=== PATIENT | female | born 1975 | race African-American/Black ===

== ENCOUNTER 2017-01-02 11:55 | Emergency (ER) | payer OTHER ==
[2014-09-25 16:21] VITALS: BP 101/59
[2017-01-02] MEDS ORDERED: traMADol HCL 50 MG TABLET ONE (12:14)
--- NOTE | 2017-01-02 17:15 | Diagnostic Imaging Report ---
[facility] [address] [facility].[address] [address] Report Submission Date: Jan 02, 2017 12:40:54 PM CDT Patient Study Name: PAM MCCARTHY Date: Jan 02, 2017 12:18:05 PM CDT Modality Type: CR Gender: F Description: SPINE : 79 Institution: [facility] Physician: CHI DUTTON - RAJ Lumbar spine -three views CLINICAL HISTORY: Right-sided low back pain for 1 day. FINDINGS: Examination lumbar spine in AP, lateral and lateral coned-down views demonstrates mild levoscoliosis with the apex at L4-5. This may be related to muscle spasm or patient positioning. Pedicles are intact and the paravertebral soft tissues are within normal limits. There is no evident fracture and no lytic or blastic lesion. IMPRESSION: Mild levoscoliosis. No fracture. Electronically signed on Jan 02, 2017 12:40:54 PM CDT by: Mike YIN
--- NOTE | 2017-01-10 15:09 | ED Physician Documentation ---
Low Back Pain - HISTORIAN Historian: patient, friend - [facility] Chief Complaint: Low Back Pain/ Injury Additional Information: LOW BACKK PAIN SPASM APARENTLY AFTER LIFTING OR MAYBE JUST TWISTED WRONG Onset: other (ONSET YESTERDAY WORSE TODAY - UNABLE TO GO TO WORK. PT SITS BENT OVER IN W/CHAIR ) Duration: continues in ED, worse Recent Injury: No (UNCERTAIN JUST HOW BUT ROGRESSIVELY WORSE) Context: lifting, turning, bending Where: work Other Injuries: back Severity: moderate, severe Quality: burning, sharp Associated Symptoms: denies: fever, chills, sweating, constipation Worsened By:: movement to RT flexion, movement to LT flexion - ROS CONST: no problems. denies: recent illness CVS/RESP: none MS/SKIN/LYMPH: none Neuro/Psych: none GI/: denies: abdominal pain - PAST HX Past History: other (OCC PREV BACK PAIN BUT NOT THIS BAD) Surgeries/Procedures: BTL Allergies/Adverse Reactions: Allergies Allergy/AdvReac Type Severity Reaction Status Date / Time diclofenac [Diclofenac] Allergy Verified 09/25/14 16:22 ibuprofen Allergy Verified 09/25/14 16:22 naproxen Allergy Verified 09/25/14 16:22 NSAIDS (Non-Steroidal Allergy Verified 09/25/14 16:22 Anti-Inflamma Home Medications: Ambulatory Orders Medication Instructions Recorded Baclofen 10 mg PO TID PRN #21 tablet 09/25/14 - SOCIAL HX Smoking History: non-smoker Alcohol Use: none Drug Use: none - FAMILY HX Family History: no significant history - VITAL SIGNS Vital Signs: Vital Signs Temp Pulse Resp BP Pulse Ox 101/59 09/25/14 18:03 - REVIEWED ASSESSMENTS Nursing Assessment Reviewed: Yes Vitals Reviewed: Yes ED Results Lab/Radiology - Orders Orders: ED Orders Category Date Time Status L SPINE 2 OR 3 VIEWS [RAD] Routine Exams 01/02/17 Completed traMADol HCL [Ultram] Med 01/02/17 12:14 Discontinued 100 mg .ROUTE .STK-MED ONE Low Back Pain/Injury - Physical Exam General Appearance: moderate distress EENT: eye inspection normal Neck: non-tender, painless ROM Resp/CVS: chest non-tender, breath sounds nml, heart sounds nml, no resp. distress, lungs clear, reg. rate & rhythm Abdomen: non-tender Back: CVA tenderness, muscle spasm. No: vertebral point-tendernes Neuro/Psych: oriented x3, sensation nml, mood/affect nml Skin: warm/dry, normal color. No: cyanosis, diaphoresis, jaundice Extremities: non-tender, normal range of motion, no evidence of injury, no edema Discharge Clincal Impression: LUMBAR AND THORACIC BACK PAIN Referrals: Primary Doctor,No [Primary Care Provider] - 2 Days Comments: HOME MEDS HOT MOIST PACKS LIE ON FLAT FIRM SURFACEF/U W/PCP OR RTED Disposition: 01 HOME, SELF-CARE Decision to Admit: NO Decision Time: 12:51
== END 2017-01-02 13:00 | disposition home or self-care (01) ==
LOC: ED 11:55
DX: M54.6 Pain in thoracic spine (principal); M54.5 Low back pain
CPT/HCPCS: 72100; 99283

== ENCOUNTER 2017-05-31 08:39 | Emergency (ER) | payer SELFPAY ==
[2017-05-31 08:58] VITALS: BP 113/73
--- NOTE | 2017-05-31 09:02 | ED Physician Documentation ---
Lower Extremity Injury - HISTORIAN Historian: patient - HPI Chief Complaint: Lower Extremity Problem Additional Information: Patient has developed a pain and some numbness in the left lower leg. Started this AM. Patient sustained a strain in the muscle last week. Has been using heat and ice. Was getting better until this AM. Pain seems to wax and wain some. Has started to swell some. Pain is worse with weight bearing, and with movement. No previous injury. Has been off of it for the last 4 days. No prevous history of DVT/PE, has a niece with DVT, no other family history. Is not taking control pills. Onset: days ago (7 days) Where: home Severity: moderate - ROS CONST: no problems - PAST HX Past History: none Immunizations: referred to PCP Allergies/Adverse Reactions: Allergies Allergy/AdvReac Type Severity Reaction Status Date / Time diclofenac [Diclofenac] Allergy Verified 05/31/17 09:00 ibuprofen Allergy Verified 05/31/17 09:00 naproxen Allergy Verified 05/31/17 09:00 NSAIDS (Non-Steroidal Allergy Verified 05/31/17 09:00 Anti-Inflamma Home Medications: Ambulatory Orders Medication Instructions Recorded Acetaminophen with Codeine 1 - 2 each PO BID PRN #20 tablet 05/31/17 [Acetaminophen-Cod #3 Tablet] - SOCIAL HX Smoking History: greater than 1 pack/day (1 ppd) Alcohol Use: none Drug Use: none - FAMILY HX Family History: no significant history - VITAL SIGNS Vital Signs: Vital Signs Temp Pulse Resp BP Pulse Ox 97.3 F L 74 16 113/73 100 05/31/17 08:45 05/31/17 08:45 05/31/17 08:45 05/31/17 08:45 05/31/17 08:45 - REVIEWED ASSESSMENTS Nursing Assessment Reviewed: Yes Vitals Reviewed: Yes ED Results Lab/Radiology - Radiology Radiology Impressions: Examination: Ultrasound left vein History: LEFT LOWER LEG PAIN AND NUMBNESS SINCE THIS AM, STRAIN INJURY TO LEG 1 WEEK AGO (Hx) Findings: Sonographic evaluation of the left lower extremity venous system from the groin to the popliteal fossa inclusive. Normal compressibility. No luminal filling defect. Normal waveforms and response to augmentation. No popliteal region fluid collection. Impression: No evidence for deep venous thrombosis. - Orders Orders: ED Orders Category Date Time Status US EXTREMITY VEINS UNILAT [US] Stat Exams 05/31/17 Ordered Ketorolac Tromethamine [Toradol] Med 05/31/17 09:07 Discontinued 60 mg IM NOW ONE Lower Extremities Injury Phy - Physical Exam General Appearance: alert, mild distress Hips: bilateral hip: non-tender, normal inspection, normal range of motion, no evidence of injury Legs: right: non-tender, normal inspection, normal range of motion, limited range of motion (due to pain, pain with dorsal flex foot), pain, soft tissue tenderness (posterior claf area), left: other (tenderness to palpation, no cords palpated, no muscle or bony abnl noted.), bilateral: no evidence of injury , N/A: bone tenderness (none), ecchymosis (none), swelling (calf circumference equal bilaterally) Knees: bilateral: non-tender, normal inspection, normal range of motion, no evidence of injury Ankle: bilateral: non-tender, normal inspection, normal range of motion, no evidence of injury DTR - Lower Extremities: knee (R): 2+, knee (L): 2+ Gait: limited by pain Neuro/Vascular/Tendon: no vascular compromise, motor nml, sensation nml. No: abnml color Resp/CVS: chest non-tender, breath sounds nml, heart sounds nml, no resp. distress, lungs clear Discharge Clincal Impression: Gastrocnemius strain, left Qualifiers: Encounter type: sequela Qualified Code(s): S86.112S - Strain of other muscle(s ) and tendon(s) of posterior muscle group at lower leg level, left leg, sequela Referrals: Primary Doctor,No [Primary Care Provider] - 2 Days Additional Instructions: Continue using the heat/ raimundo compresses. Start taking some Tylenol #3 twice a day as needed for pain. Do stretching exercises as directed. Off leg for 2 more days. Condition: Stable Disposition: 01 HOME, SELF-CARE Decision to Admit: NO Date of Decison to Admit: 05/31/17 Decision Time: 10:06
[2017-05-31] MEDS ORDERED: KETOROLAC TROMETHAMINE 60 MG/2 ML VIAL IM ONE (09:07)
--- NOTE | 2017-05-31 10:27 | Diagnostic Imaging Report ---
ELY ZHOU [facility] [address] [facility] [address] 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 Normal compressibility. No luminal filling defect. Normal waveforms and response to augmentation. No popliteal region fluid collection. Impression: No evidence for deep venous thrombosis. Electronically signed on May 31, 2017 9:57:56 AM CLINICAL ENGINEERING DIRECTOR by: Lewis YIN
== END 2017-05-31 10:20 | disposition home or self-care (01) ==
LOC: ED 08:39
DX: S86.112A Strain of other muscle(s) and tendon(s) of posterior muscle group at lower leg level, left leg, initial encounter (principal); X58.XXXA Exposure to other specified factors, initial encounter; Y92.9 Unspecified place or not applicable; Y93.9 Activity, unspecified; Y99.9 Unspecified external cause status
CPT/HCPCS: 93971; 96372; 99283